=== PATIENT | female | born 1985 | race Two or more races ===

== ENCOUNTER 2021-12-13 18:47 | Emergency (ER) | payer OTHER ==
[~2021-12-13] VITALS: Ht 152.4 cm; Wt 76.2 kg
== END 2021-12-13 22:52 | disposition home or self-care (01) ==
LOC: ER 18:47
DX: U07.1 COVID-19 (principal)

== ENCOUNTER 2022-02-28 15:35 | Outpatient (CLI) | payer OTHER | END 2022-02-28 17:02 | disposition home or self-care (01) | LOC: PRENATAL 15:35 | PROVIDERS: ATTEND Obstetrics & Gynecology Maternal & Fetal Medicine | DX: O35.0XX0 Maternal care for (suspected) central nervous system malformation in fetus, not applicable or unspecified (principal); O35.3XX0 Maternal care for (suspected) damage to fetus from viral disease in mother, not applicable or unspecified; O28.1 Abnormal biochemical finding on antenatal screening of mother; O09.529 Supervision of elderly multigravida, unspecified trimester; O34.219 Maternal care for unspecified type scar from previous cesarean delivery; O34.10 Maternal care for benign tumor of corpus uteri, unspecified trimester; Z3A.23 23 weeks gestation of pregnancy ==

== ENCOUNTER 2022-06-12 08:26 | Inpatient (IN) | payer OTHER ==
[~2022-06-12] VITALS: Ht 154.9 cm; Wt 78.0 kg
[2022-06-18] MEDS ORDERED: COMPLETE NATAL1 EACH PO (06:14)
== END 2022-06-20 15:28 | disposition home or self-care (01) | DRG 785 ==
LOC: O/R 06-18 07:50 → OB/GYN 06-18 07:50
PROVIDERS: ADMIT Obstetrics & Gynecology; ATTEND Obstetrics & Gynecology
PROC: 0UB70ZZ Excision of Bilateral Fallopian Tubes, Open Approach (ICD-10-PCS; 2022-06-18)
PROC: 4A1HXCZ Monitoring of Products of Conception, Cardiac Rate, External Approach (ICD-10-PCS; 2022-06-18)
PROC: 10D00Z1 Extraction of Products of Conception, Low, Open Approach (ICD-10-PCS; principal; 2022-06-18 09:15)
DX: O34.211 Maternal care for low transverse scar from previous cesarean delivery (principal); Z30.2 Encounter for sterilization; Z3A.39 39 weeks gestation of pregnancy; Z37.0 Single live birth; Z20.822 Contact with and (suspected) exposure to COVID-19